=== PATIENT | male | born 1995 | race Caucasian/White ===

== ENCOUNTER → 2017-10-15 | Outpatient (CLI) | payer OTHER ==
[~2017-10-15] MED LIST: CALC500C3 PO; HYDR-5688 PO; ISOT1CAP7 PO
== END | disposition home or self-care (01) ==
LOC: C.LABBC 12:55
PROVIDERS: ATTEND Neuromusculoskeletal Medicine & OMM
DX: Z20.2 Contact with and (suspected) exposure to infections with a predominantly sexual mode of transmission (principal)